=== PATIENT | female | born 1980 | race Caucasian/White ===

== ENCOUNTER → 2021-12-11 11:32 | Outpatient (CLI) | payer OTHER, SELFPAY ==
--- NOTE | 2021-12-11 | DI.MRI.S_ITS ---
PROCEDURE: MR PELVIS WO/W CON INDICATIONS: Fibroid TECHNIQUE: Coronal HASTE, sagittal breath-hold T2 FSE; axial T1 FSE with and without fat saturation through the pelvis. Optional long- and short-axis uterine nonbreath-hold T2 FSE through the uterus. Sagittal or axial dynamic VIBE during administration of contrast. Post-contrast axial or coronal VIBE/2-D FLASH with fat saturation from the iliac crests to the symphysis. Restricted diffusion weighted imaging and ADC was performed. COMPARISON: None. FINDINGS: Image quality: Excellent. Uterus: Uterus is enlarged measuring 15.2 x 10.7 x 10.5 cm. Large fundal intramural fibroid measuring 10.5 x 9.3 x 7.9 cm, (3/14). Small posterior intramural fibroid measuring 2.3 x 1.8 x 1.8 cm. No suspicious enhancement or restricted diffusion demonstrated. Junctional zone is normal in thickness at 12 mm or less. Endometrium is normal in thickness measuring 0.4 cm. Small nabothian cysts. Adnexa: Both ovaries are normal in size, without suspicious cystic or solid lesions. Small ovarian follicles. Urinary system: Bladder is decompressed. Distal ureters are non distended. Urethra appears normal in morphology. Nodes and vessels: No pelvic or inguinal adenopathy by size criteria. Iliac vessels are normal in size. Bowel and peritoneum: No pathologic free pelvic fluid. Inferior colon and small bowel loops are normal in caliber. Soft tissues: No inguinal hernias. No findings of pelvic floor incompetence in the absence of provocation. Bones: Marrow demonstrates normal overall signal. IMPRESSION: Enlarged fibroid uterus. Large fundal intramural fibroid measuring 10.5 cm. No suspicious imaging features identified. Dictated by: Humberto Raza M.D. on 12/11/2021 at 13:59 Approved by: Humberto Raza M.D. on 12/11/2021 at 14:09
== END ==
PROVIDERS: Referring Provider Obstetrics & Gynecology; Visit Provider Obstetrics & Gynecology
DX: D25.1 Intramural leiomyoma of uterus (principal)
CPT/HCPCS: 72197; A9579

== ENCOUNTER → 2022-02-18 13:08 | Outpatient (CLI) | payer OTHER, SELFPAY ==
[2022-02-18 18:39] LABS: Add Manual Diff / Slide Review NO; Basophils Absolute Auto 100 /uL (0-100); Basophils Percent Auto 0.8 % (0-2); Eosinophils Absolute Auto 100 /uL (0-450); Hematocrit 38.6 % (36-46); Hemoglobin 13.3 g/dL (12.0-16.0); Lymphocytes Absolute Auto 2400 /uL (1100-4500); Lymphocytes Percent Auto 33.9 % (25-40); Mean Corpuscular HGB Conc 34.5 % (30-36); Mean Corpuscular Volume 89.7 fL (80-100); Monocytes Absolute Auto 500 /uL (0-900); Monocytes Percent Auto 6.7 % (3-14); Neutrophils Absolute Auto 4000 /uL (1500-7000); Neutrophils Percent Auto 56.6 % (50-75); Platelet Count 386 X10^3/uL (150-400); Red Blood Cell Count 4.31 X10^6/uL (4.0-5.2); Red Cell Distribution Width 12.9 % (11.6-14.8)
[2022-02-18 18:59] LABS: Vitamin D 25 Hydroxy (D3) 47.3 ng/mL (30.0-100.0)
[2022-02-18 19:01] LABS: Follicle Stimulating Hormone 4.88 mIU/mL
[2022-02-18 19:15] LABS: Thyroid Stimulating Hormone 1.05 uIU/mL (0.47-4.68)
[2022-02-18 19:22] LABS: Hemoglobin A1C% w Est Avg Glu 5.6 % (4.0-6.0)
[2022-02-22 19:43] LABS: Varicella IgG Antibody 1591 index (Immune >165)
[2022-02-22 19:43] LABS: Mumps Virus IgG Antibody 39.3 AU/mL (Immune >10.9); Rubeola Measles IgG 95.3 AU/mL (Immune >16.4)
[2022-02-27 11:24] LABS: Percent Free Testosterone 1.58 % (0.50-2.80); Testosterone Free 0.36 ng/dL (0.10-0.85); Testosterone Total 22.9 ng/dL (.)
== END ==
PROVIDERS: Obstetrics & Gynecology; Visit Provider Obstetrics & Gynecology Reproductive Endocrinology
DX: Z00.00 Encounter for general adult medical examination without abnormal findings (principal); E28.9 Ovarian dysfunction, unspecified; Z11.3 Encounter for screening for infections with a predominantly sexual mode of transmission; Z11.4 Encounter for screening for human immunodeficiency virus [HIV]; Z11.9 Encounter for screening for infectious and parasitic diseases, unspecified; Z13.29 Encounter for screening for other suspected endocrine disorder; Z13.9 Encounter for screening, unspecified
CPT/HCPCS: 82306; 82397; 83001; 83036; 84146; 84402; 84403; 84443; 85025; 86735; 86762; 86765; 86787; 86850; 86900; 86901

== ENCOUNTER → 2022-03-23 13:03 | Outpatient (CLI) | payer OTHER, SELFPAY ==
[2022-03-23 20:07] LABS: Add Manual Diff / Slide Review NO; Basophils Absolute Auto 100 /uL (0-100); Eosinophils Absolute Auto 200 /uL (0-450); Eosinophils Percent Auto 3.2 % (2-4); Hemoglobin 13.4 g/dL (12.0-16.0); Lymphocytes Absolute Auto 2100 /uL (1100-4500); Lymphocytes Percent Auto 37.6 % (25-40); Mean Corpuscular HGB Conc 34.3 % (30-36); Mean Corpuscular Hemoglobin 31.2 PG (26-34); Mean Corpuscular Volume 90.9 fL (80-100); Monocytes Absolute Auto 400 /uL (0-900); Monocytes Percent Auto 7.4 % (3-14); Neutrophils Absolute Auto 2800 /uL (1500-7000); Neutrophils Percent Auto 50.8 % (50-75); Platelet Count 372 X10^3/uL (150-400); Red Cell Distribution Width 12.6 % (11.6-14.8); White Blood Cell Count 5.5 X10^3/uL (4.5-11.0)
== END ==
PROVIDERS: Visit Provider Physician Assistant
DX: K62.5 Hemorrhage of anus and rectum (principal)
CPT/HCPCS: 85025

== ENCOUNTER → 2022-05-06 09:22 | Outpatient (CLI) | payer OTHER, SELFPAY ==
--- NOTE | 2022-05-06 09:39 | DI.US.S_ITS ---
PROCEDURE: US PELVIC COMPLETE INDICATIONS: OVARIAN DYSFUNCTION. MEASURE ALL FOLLICLES AND TYPE OF ENDO. Currently on menses. Prior myomectomy TECHNIQUE: Real-time scanning was performed of the pelvic organs, with image documentation. Additional endovaginal scanning was necessary due to incomplete visualization of the adnexal and endometrial structures by transabdominal scanning. COMPARISON: [facility], MR, MR PELVIS WO/W CON, 12/11/2021, 11:43. FINDINGS: Uterus: Uterus is retroverted and normal in size at 8.3 x 6.1 x 5.1 cm. The endometrium measures 5 mm combined thickness, appears homogeneous/uniform. Tiny hypoechoic potentially cystic structure at the fundal endometrium measures 0.4 x 0.3 x 0.4 cm. Right midline intramural fibroid measuring 2.2 x 2.5 x 2.4 cm. Small multicystic area within the myometrium anterior to the uterine cavity abutting the endometrium measures 0.8 x 0.5 x 0.5 cm, nonspecific, could be sequela of prior myomectomy. Ovaries: Right ovary: 3.0 x 3.4 x 1.5 cm, volume 8 cc Follicles -1.1 cm -0.9 cm -0.8 cm -0.9 cm -0.8 cm -Approximately 8 others smaller than 5 mm Left ovary: 3.2 x 2.5 x 2.1 cm, volume 9 cc Follicles -0.6 cm -0.8 cm -Approximately 10 others smaller than 5 mm Other: No pathologic free abdominal or pelvic fluid. IMPRESSION: 1. Endometrial thickness of 5 mm, endometrium appears uniform. 2. Ovarian follicles as above. 3. A 2.5 cm intramural uterine fibroid. 4. Sub cm multi cystic area within the myometrium anterior to the uterine cavity/endometrium is nonspecific, could represent sequela of prior myomectomy, adenomyosis is also possible. 5. A 4 mm hypoechoic potentially cystic structure is present at the fundal endometrium, could represent blood products in this patient undergoing menses but is non-specific. We strive to produce accurate, complete, and clear reports of imaging services. To assist us in improving patient care, this report was composed using standard report templates and voice recognition software. Therefore, it may contain abnormal punctuation, insertions and/or omissions. Occasional wrong-word or sound-alike substitutions may occur. Though we review the report and make efforts to correct it, we do recommend that the report be read carefully in proper context to recognize any text inaccuracies. Dictated by: Devan Brown M.D. on 05/06/2022 at 12:57 Approved by: Devan Brown M.D. on 05/06/2022 at 13:12
[2022-05-06 12:09] LABS: Add Manual Diff / Slide Review NO; Basophils Absolute Auto 100 /uL (0-100); Basophils Percent Auto 0.6 % (0-2); Eosinophils Absolute Auto 400 /uL (0-450); Eosinophils Percent Auto 4.6 % (2-4); Hematocrit 40.1 % (36-46); Hemoglobin 13.7 g/dL (12.0-16.0); Lymphocytes Absolute Auto 2500 /uL (1100-4500); Lymphocytes Percent Auto 28.8 % (25-40); Mean Corpuscular HGB Conc 34.3 % (30-36); Mean Corpuscular Hemoglobin 30.7 PG (26-34); Mean Corpuscular Volume 89.5 fL (80-100); Monocytes Absolute Auto 500 /uL (0-900); Monocytes Percent Auto 5.5 % (3-14); Neutrophils Absolute Auto 5300 /uL (1500-7000); Neutrophils Percent Auto 60.5 % (50-75); Platelet Count 346 X10^3/uL (150-400); Red Blood Cell Count 4.48 X10^6/uL (4.0-5.2); Red Cell Distribution Width 12.7 % (11.6-14.8); White Blood Cell Count 8.7 X10^3/uL (4.5-11.0)
[2022-05-06 12:13] LABS: Follicle Stimulating Hormone 9.79 mIU/mL; Progesterone, Total 0.74 ng/mL
[2022-05-06 12:14] LABS: HCG Quantitative /Beta subunit < 2.4 mIU/mL
[2022-05-06 12:29] LABS: Estradiol, Total 34.7 pg/mL
[2022-05-06 12:39] LABS: Erythrocyte Sedimentation Rate 7 MM/HR (0-20); Vitamin D 25 Hydroxy (D3) 48.2 ng/mL (30.0-100.0)
[2022-05-06 12:56] LABS: HEMOLYSIS < 15 (0-50); Iron 49 ug/dL (37-170)
[2022-05-06 13:09] LABS: Percent Iron Saturation 12 % (15-50); Total Iron Binding Capacity 426 ug/dL (265-497); Transferrin 309 mg/dL (206-381)
[2022-05-06 13:16] LABS: Free T3, Triiodothyronine Free 3.73 pg/mL (2.77-5.27); Free T4, Direct Thyroxine 1.16 ng/dL (0.78-2.19)
[2022-05-06 14:37] LABS: Alanine Aminotransferase 24 IU/L (<35); Albumin 4.2 g/dL (3.5-5.0); Albumin Globulin Ratio 1.3 (1.0-2.8); Alkaline Phosphatase 48 U/L (38-126); Aspartate Aminotransferase 24 IU/L (14-36); Bilirubin Total 0.2 mg/dL (0.2-1.3); Blood Urea Nitrogen 13 mg/dL (7-17); C-Reactive Protein Quant < 0.5 mg/dL (<1.0); Calcium 9.1 mg/dL (8.4-10.2); Carbon Dioxide 21 mmol/L (22-32); Chloride 107 mmol/L (98-107); Cholesterol 190 mg/dL (140-199); Estimated Glomerular Filt Rate > 60 mL/min (>60); Gamma Glutamyl Transpeptidase 28 U/L (12-43); Globulin 3.3 g/dL (1.7-4.1); Glucose 97 mg/dL (70-100); HDL Cholesterol 26 mg/dL (40-60); HEMOLYSIS < 15 (0-50); LDL Cholesterol Calculated 109 mg/dL (<100); Sodium 139 mmol/L (137-145); Total Protein 7.5 g/dL (6.3-8.2); Triglycerides 275 mg/dL (35-150); Uric Acid 6.8 mg/dL (2.5-6.2)
[2022-05-06 14:39] LABS: High Sensitivity CRP - Cardiac 2.7 mg/L (1.0-3.0)
[2022-05-06 15:06] LABS: Cortisol AM (Before 10AM) 4.52 ug/dL (4.46-22.7)
[2022-05-06 15:11] LABS: Ferritin 17 ng/mL (6-137)
[2022-05-06 15:44] LABS: Hemoglobin A1C% w Est Avg Glu 5.4 % (4.0-6.0)
[2022-05-07 05:54] LABS: Thyroid Peroxidase Antibodies <8 IU/mL (0-34)
[2022-05-07 08:20] LABS: Homocysteine 8.4 umol/L (0.0-14.5)
[2022-05-07 18:27] LABS: Anti Thyroglobulin Antibody <1.0 IU/mL (0.0-0.9)
[2022-05-07 22:27] LABS: Zinc 74 ug/dL (44-115)
== END ==
PROVIDERS: Referring Provider Obstetrics & Gynecology Reproductive Endocrinology; Visit Provider Obstetrics & Gynecology Reproductive Endocrinology
DX: Z31.83 Encounter for assisted reproductive fertility procedure cycle (principal); D25.1 Intramural leiomyoma of uterus; E28.9 Ovarian dysfunction, unspecified; N91.5 Oligomenorrhea, unspecified; N39.9 Disorder of urinary system, unspecified; R39.15 Urgency of urination; Z73.3 Stress, not elsewhere classified; R63.5 Abnormal weight gain; N92.0 Excessive and frequent menstruation with regular cycle; K58.9 Irritable bowel syndrome, unspecified; R51.9 Headache, unspecified; R12 Heartburn; N94.3 Premenstrual tension syndrome; N97.9 Female infertility, unspecified; J30.2 Other seasonal allergic rhinitis
CPT/HCPCS: 36415; 76830; 76856; 80053; 80061; 82306; 82533; 82627; 82670; 82728; 82977; 83001; 83002; 83036; 83090; 83525; 83540; 83550; 84144; 84439; 84443; 84481; 84550; 84630; 84702; 85025; 85651; 86140; 86376; 86800

== ENCOUNTER → 2022-05-10 | Outpatient (CLI) | payer OTHER, SELFPAY ==
--- NOTE | 2022-05-10 | DI.US.S_ITS ---
PROCEDURE: US PELVIC COMPLETE INDICATIONS: FOLLICLE COUNT TECHNIQUE: Real-time scanning was performed of the pelvic organs, with image documentation. Additional endovaginal scanning was necessary due to incomplete visualization of the adnexal and endometrial structures by transabdominal scanning. COMPARISON: [facility], , US PELVIC COMPLETE, 05/06/2022, 9:48. FINDINGS: Uterus: Uterus is retroverted and normal in size at 8 x 4.7 x approximately 7.2 cm. The myometrium is heterogeneous, with several stable fibroids. The endometrium measures 6-7 mm combined thickness. The endometrial stripe is nearing a trilaminar appearance Ovaries: The right ovary measures 4.1 x 2.8 x 2.5 cm, with a calculated ovarian volume of 14.7 cc. The left ovary measures 3.5 x 2.5 x 2.7 cm, with a calculated ovarian volume of 12 cc. The ovaries have a normal sonographic appearance. No adnexal masses are seen. Follicle count: Right ovary: 8 follicles smaller than 5 mm, 3 follicles larger than 5 mm: 1.2 x 1.7 x 1.2 cm 2.1 x 1.5 x 1.3 cm 1.1 x 0.7 x 0.8 cm Left ovary: 5 follicles smaller than 5 mm, 4 follicles larger than 5 mm: 1.1 x 1.3 x 1.2 cm 1.2 x 1.2 x 1.3 cm 0.7 x 0.6 x 0.7 cm 0.6 x 0.5 x 0.6 Other: No pathologic free abdominal or pelvic fluid. IMPRESSION: Follicle count above. We strive to produce accurate, complete, and clear reports of imaging services. To assist us in improving patient care, this report was composed using standard report templates and voice recognition software. Therefore, it may contain abnormal punctuation, insertions and/or omissions. Occasional wrong-word or sound-alike substitutions may occur. Though we review the report and make efforts to correct it, we do recommend that the report be read carefully in proper context to recognize any text inaccuracies. Dictated by: Vicente Caldwell M.D. on 05/10/2022 at 10:56 Approved by: Vicente Caldwell M.D. on 05/10/2022 at 11:00
[2022-05-10 12:07] LABS: Luteinizing Hormone 1.62 mIU/mL; Progesterone, Total 0.89 ng/mL
[2022-05-10 12:22] LABS: Estradiol, Total 136.1 pg/mL
== END ==
PROVIDERS: PCP Physician Assistant; Referring Provider Obstetrics & Gynecology Reproductive Endocrinology; Visit Provider Obstetrics & Gynecology Reproductive Endocrinology
DX: Z31.83 Encounter for assisted reproductive fertility procedure cycle (principal); E28.9 Ovarian dysfunction, unspecified
CPT/HCPCS: 36415; 76830; 76856; 82670; 83002; 84144

== ENCOUNTER → 2022-05-12 09:17 | Outpatient (CLI) | payer OTHER, SELFPAY ==
--- NOTE | 2022-05-12 | DI.US.S_ITS ---
PROCEDURE: US TRANSVAGINAL INDICATIONS: FOLLICLE COUNT TECHNIQUE: Real-time scanning was performed of the pelvic organs, with image documentation. Additional endovaginal scanning was necessary due to incomplete visualization of the adnexal and endometrial structures by transabdominal scanning. COMPARISON: None. FINDINGS: Uterus: The uterus measures 8.6 x 4.8 x 8.4 centimeters. The endometrium measures 10 millimeters and has a trilaminar physiologic appearance. There are endometrial echogenic possible masses, measuring up to 1.5 x 0.5 centimeters and 1.7 x 1.5 centimeters. At least 1 might have a vascular stalk. Fibroid uterus. Ovaries: Right ovary measures 4.6 x 3.3 x 2.9 centimeters, for a volume of 23 cc. Left ovary measures 4.1 x 3.0 x 3.5 centimeters, for a volume of 22 cc. There are 6 follicles in right ovary over 5 millimeters, the largest two measuring 2.2 x 1.7 x 1.5 centimeters and 2.5 x 1.8 x 1.9 centimeters. There are 4 follicles under 5 millimeters. There 8 follicles in the left ovary over 5 millimeters, the largest two measuring 1.6 x 1.7 x 1.6 centimeters and 1.9 x 1.4 x 1.5 centimeters. There is 1 follicle under 5 millimeters. Other: No pathologic free abdominal or pelvic fluid. IMPRESSION: Follicle count as above. Trilaminar appearance of the endometrium. Endometrial echogenic region as described above could represent polyps, but may also represent heterogeneity in the secretory phase, as these were not definitely seen previously. Attention on follow-up imaging. Fibroid uterus. We strive to produce accurate, complete, and clear reports of imaging services. To assist us in improving patient care, this report was composed using standard report templates and voice recognition software. Therefore, it may contain abnormal punctuation, insertions and/or omissions. Occasional wrong-word or sound-alike substitutions may occur. Though we review the report and make efforts to correct it, we do recommend that the report be read carefully in proper context to recognize any text inaccuracies. Dictated by: Álvaro Lombardi M.D. on 05/12/2022 at 10:55 Approved by: Álvaro Lombardi M.D. on 05/12/2022 at 11:07
[2022-05-12 11:41] LABS: Luteinizing Hormone 1.47 mIU/mL; Progesterone, Total 0.94 ng/mL
[2022-05-12 11:56] LABS: Estradiol, Total 316.1 pg/mL
== END ==
PROVIDERS: PCP Physician Assistant; Referring Provider Obstetrics & Gynecology Reproductive Endocrinology; Visit Provider Obstetrics & Gynecology Reproductive Endocrinology
DX: Z31.83 Encounter for assisted reproductive fertility procedure cycle (principal); E28.9 Ovarian dysfunction, unspecified; D25.9 Leiomyoma of uterus, unspecified
CPT/HCPCS: 36415; 76830; 82670; 83002; 84144

== ENCOUNTER → 2022-05-28 07:18 | Outpatient (CLI) | payer OTHER, SELFPAY ==
--- NOTE | 2022-05-28 | DI.US.S_ITS ---
PROCEDURE: US TRANSVAGINAL INDICATIONS: Ovarian dysfunction, unspecified TECHNIQUE: Real-time scanning was performed of the pelvic organs, with image documentation. Additional endovaginal scanning was necessary due to incomplete visualization of the adnexal and endometrial structures by transabdominal scanning. COMPARISON: [facility], US, US TRANSVAGINAL, 05/12/2022, 9:34. FINDINGS: Uterus: Uterus is retroverted. The endometrium measures 4 mm combined thickness. Trace fluid is seen in the fundal endometrial canal. Previously seen uterine fibroids are not imaged. Right ovary: The right ovary measures 3.2 x 2.1 x 2.9 cm, with a calculated ovarian volume of 10 cc. A cyst with low-level internal echoes is seen measuring 1.1 x 1.2 by 1.0 cm, most likely a hemorrhagic cyst. Two follicles are seen measuring greater than 1.0 cm (2.6 cm and 1.1 cm in greatest dimension respectively). 3 follicles are seen measuring less than 1.0 cm. The left ovary measures 2.7 x 1.7 x 2.4 cm, with a calculated ovarian volume of 5.7 cc. The ovaries have a normal sonographic appearance. A probable hemorrhagic cyst is seen measuring 0.5 x 0.9 x 0.6 cm. No follicles are seen measuring greater than 1.0 cm. A total of 16 follicles are seen measuring less than 1.0 cm. Other: No pathologic free abdominal or pelvic fluid. IMPRESSION: 1. Follicle count as described in the body of the report. Small hemorrhagic cysts are seen bilaterally. 2. Endometrium measures 4 mm in thickness. Previously seen echogenic regions are not redemonstrated. We strive to produce accurate, complete, and clear reports of imaging services. To assist us in improving patient care, this report was composed using standard report templates and voice recognition software. Therefore, it may contain abnormal punctuation, insertions and/or omissions. Occasional wrong-word or sound-alike substitutions may occur. Though we review the report and make efforts to correct it, we do recommend that the report be read carefully in proper context to recognize any text inaccuracies. Dictated by: Devan Kang M.D. on 05/28/2022 at 9:27 Approved by: Devan Kang M.D. on 05/28/2022 at 10:07
[2022-05-28 09:01] LABS: Follicle Stimulating Hormone 4.59 mIU/mL; HCG Quantitative /Beta subunit < 2.4 mIU/mL; Luteinizing Hormone 1.34 mIU/mL; Progesterone, Total 1.06 ng/mL
[2022-05-28 09:16] LABS: Estradiol, Total 21.1 pg/mL
[2022-05-28 09:40] LABS: Thyroid Stimulating Hormone 2.21 uIU/mL (0.47-4.68)
== END ==
PROVIDERS: PCP Physician Assistant; Referring Provider Obstetrics & Gynecology Reproductive Endocrinology; Visit Provider Obstetrics & Gynecology Reproductive Endocrinology
DX: Z31.83 Encounter for assisted reproductive fertility procedure cycle (principal); E28.9 Ovarian dysfunction, unspecified; N83.202 Unspecified ovarian cyst, left side; N83.201 Unspecified ovarian cyst, right side
CPT/HCPCS: 36415; 76830; 82670; 83001; 83002; 84144; 84443; 84702

== ENCOUNTER → 2022-06-07 08:07 | Outpatient (CLI) | payer OTHER, SELFPAY ==
--- NOTE | 2022-06-07 | DI.US.S_ITS ---
PROCEDURE: US TRANSVAGINAL INDICATIONS: FOLLICLE COUNT/ENDO TYPE. NEW ESTROGEN/PROGESTRONE THERAPY. TECHNIQUE: Real-time endovaginal scanning was performed of the pelvic organs, with image documentation. COMPARISON: [facility], US TRANSVAGINAL, 05/28/2022, 7:41. FINDINGS: Uterus: Uterus is retroverted and normal in size at 7.3 x 6.6 x 5.1 cm. The myometrium is heterogeneous. A small uterine calcification is noted. The endometrium measures 3.7 mm combined thickness. There is a 3 mm cyst within the endometrium which is slightly decreased in size from 4 mm on the prior study. There is a right posterior intramural fibroid which measures 2.6 x 2.5 x 2.8 cm (previously measured 2.2 x 2.5 x 2.4 cm) and a right posterior intramural fibroid which measures 0.9 x 0.8 x 0.7 cm (previously measured 0.5 x 0.5 x 0.8 cm). Ovaries: The right ovary measures 4.1 x 1.7 x 2.1 cm, with a calculated ovarian volume of 7.6 cc. The left ovary measures 3.7 x 2.7 x 2.0 cm, with a calculated ovarian volume of 10.9 cc. The ovaries have a normal sonographic appearance. No adnexal masses are seen. Right ovary: There is a complex cyst within the right ovary which measures 1.4 x 1.5 x 1.8 cm. There are greater than 15 subcentimeter right ovarian follicles. The largest follicle measures 7 mm in diameter. Left ovary: There are greater than 11 subcentimeter follicles. The largest left ovarian follicle measures 1.0 cm in diameter. Other: No pathologic free abdominal or pelvic fluid. IMPRESSION: 1. Fibroid uterus. 2. Sonographic findings suggesting right hemorrhagic cyst. 3. Ovarian follicles as above. We strive to produce accurate, complete, and clear reports of imaging services. To assist us in improving patient care, this report was composed using standard report templates and voice recognition software. Therefore, it may contain abnormal punctuation, insertions and/or omissions. Occasional wrong-word or sound-alike substitutions may occur. Though we review the report and make efforts to correct it, we do recommend that the report be read carefully in proper context to recognize any text inaccuracies. Dictated by: Crissy Bravo M.D. on 06/07/2022 at 9:44 Approved by: Crissy Bravo M.D. on 06/07/2022 at 9:48
[2022-06-07 09:57] LABS: HCG Quantitative /Beta subunit < 2.4 mIU/mL
[2022-06-07 09:59] LABS: Follicle Stimulating Hormone 6.03 mIU/mL; Luteinizing Hormone 2.46 mIU/mL; Progesterone, Total 9.11 ng/mL
[2022-06-07 10:13] LABS: Thyroid Stimulating Hormone 1.66 uIU/mL (0.47-4.68)
[2022-06-07 10:14] LABS: Estradiol, Total 151.6 pg/mL
== END ==
PROVIDERS: PCP Physician Assistant; Referring Provider Obstetrics & Gynecology Reproductive Endocrinology; Visit Provider Obstetrics & Gynecology Reproductive Endocrinology
DX: Z31.83 Encounter for assisted reproductive fertility procedure cycle (principal); E28.9 Ovarian dysfunction, unspecified; D25.1 Intramural leiomyoma of uterus; N83.291 Other ovarian cyst, right side
CPT/HCPCS: 36415; 76830; 82670; 83001; 83002; 84144; 84443; 84702

== ENCOUNTER → 2022-06-09 09:37 | Outpatient (CLI) | payer OTHER, SELFPAY ==
--- NOTE | 2022-06-09 | DI.US.S_ITS ---
PROCEDURE: US TRANSVAGINAL INDICATIONS: Ovarian dysfunction, unspecified TECHNIQUE: Real-time scanning was performed of the pelvic organs, with image documentation. Additional endovaginal scanning was necessary due to incomplete visualization of the adnexal and endometrial structures by transabdominal scanning. COMPARISON: [facility], US, US TRANSVAGINAL, 06/07/2022, 8:25. FINDINGS: Uterus: Uterus is retroverted and normal in size at 7.8 x 5 x 7.3 cm. The myometrium is slightly heterogeneous. Multiple uterine fibroids are again seen unchanged from 06/07/2022 study. The endometrium measures 6.7 mm combined thickness. No gross endometrial mass or fluid is seen. Ovaries: The right ovary measures 3.4 x 2.5 x 2.1 cm, with a calculated ovarian volume of 9.5 cc. The left ovary measures 3.7 x 2.1 x 2.7 cm, with a calculated ovarian volume of 10.9 cc. The ovaries have a normal sonographic appearance. No adnexal masses are seen. Approximately 13 follicles are noted in right ovary on the current study with suggestion of a septated follicle versus 2 adjacent follicles measures 1.2 x 0.6 x 0.7 cm in size. Previously described possible complex cyst in right ovary is again seen now measures 1.4 x 0.9 x 1.1 cm in size compared to 1.4 x 1.5 x 1.8 cm in size on previous study. Approximately 11 follicles are noted in left ovary with a single 1 x 1 x 0.7 cm left ovarian follicle. Other: No pathologic free abdominal or pelvic fluid. IMPRESSION: 1. Multiple uterine fibroids unchanged from previous study. 2. Suggestion of right complex cyst/hemorrhagic cyst not significantly changed from previous study. 3. Bilateral ovarian follicles as described above. We strive to produce accurate, complete, and clear reports of imaging services. To assist us in improving patient care, this report was composed using standard report templates and voice recognition software. Therefore, it may contain abnormal punctuation, insertions and/or omissions. Occasional wrong-word or sound-alike substitutions may occur. Though we review the report and make efforts to correct it, we do recommend that the report be read carefully in proper context to recognize any text inaccuracies. Dictated by: Zach Burch M.D. on 06/09/2022 at 14:43 Approved by: Zach Burch M.D. on 06/09/2022 at 14:47
[2022-06-09 12:42] LABS: HCG Quantitative /Beta subunit < 2.4 mIU/mL
[2022-06-09 12:43] LABS: Follicle Stimulating Hormone 7.26 mIU/mL; Luteinizing Hormone 3.43 mIU/mL; Progesterone, Total 1.06 ng/mL
[2022-06-09 12:58] LABS: Estradiol, Total 54.8 pg/mL
== END ==
LOC: US 09:47
PROVIDERS: PCP Physician Assistant; Referring Provider Obstetrics & Gynecology Reproductive Endocrinology; Visit Provider Obstetrics & Gynecology Reproductive Endocrinology
DX: Z31.83 Encounter for assisted reproductive fertility procedure cycle (principal); E28.9 Ovarian dysfunction, unspecified; D25.9 Leiomyoma of uterus, unspecified; N83.201 Unspecified ovarian cyst, right side
CPT/HCPCS: 36415; 76830; 82670; 83001; 83002; 84144; 84443; 84702

== ENCOUNTER → 2022-06-14 15:35 | Outpatient (CLI) | payer OTHER, SELFPAY ==
--- NOTE | 2022-06-14 15:48 | DI.US.S_ITS ---
PROCEDURE: US TRANSVAGINAL INDICATIONS: FOLLICLE COUNT AND ENDOMETRIAL TYPE TECHNIQUE: Real-time scanning was performed of the pelvic organs, with image documentation. Additional endovaginal scanning was necessary due to incomplete visualization of the adnexal and endometrial structures by transabdominal scanning. COMPARISON: [facility], , US TRANSVAGINAL, 06/09/2022, 10:04. FINDINGS: Uterus: Uterus is retroverted and normal in size at 10.6 by 6.2 x 5.3 cm. The myometrium is slightly heterogenous. The endometrium is trilaminar measures 4.6 mm combined thickness. Ovaries: The right ovary measures 4.4 x 1.9 x 2.5 cm, with a calculated ovarian volume of 11.1 cc. The left ovary measures 3.6 x 2.9 x 3.5 cm, with a calculated ovarian volume of 19.0 cc. The ovaries have a normal sonographic appearance. No adnexal masses are seen. On the right, there are greater than 12 follicles present. There are 4 follicles greater than 1 cm measuring 1.5, 1.2, 1.2 and 1.2 cm respectively. On the left, there are greater than 8 total follicles. There are 3 follicles greater than 1 cm measuring 1.4, 1.4, 1.3 cm Other: No pathologic free abdominal or pelvic fluid. IMPRESSION: Follicle count as above Approved by: Grupo Carvalho M.D. on 06/14/2022 at 17:40
[2022-06-14 19:15] LABS: Luteinizing Hormone 1.24 mIU/mL; Progesterone, Total 0.57 ng/mL
[2022-06-14 19:31] LABS: Estradiol, Total 162.4 pg/mL
== END ==
PROVIDERS: PCP Physician Assistant; Referring Provider Obstetrics & Gynecology Reproductive Endocrinology; Visit Provider Obstetrics & Gynecology Reproductive Endocrinology
DX: Z31.83 Encounter for assisted reproductive fertility procedure cycle (principal); E28.9 Ovarian dysfunction, unspecified
CPT/HCPCS: 36415; 76830; 82670; 83002; 84144

== ENCOUNTER → 2022-06-16 13:47 | Outpatient (CLI) | payer OTHER, SELFPAY ==
--- NOTE | 2022-06-16 13:59 | DI.US.S_ITS ---
PROCEDURE: US TRANSVAGINAL INDICATIONS: FOLLICLE TRACKING TECHNIQUE: Real-time scanning was performed of the pelvic organs, with image documentation. Additional endovaginal scanning was necessary due to incomplete visualization of the adnexal and endometrial structures by transabdominal scanning. COMPARISON: [facility], , US TRANSVAGINAL, 06/14/2022, 16:27. FINDINGS: Uterus: Uterus is retroverted and normal in size at 8.9 x 5.4 x 8.5 cm.. The endometrium measures 9 mm combined thickness. Endometrial complex is trilaminar. There is a 3 mm focus of decreased echogenicity a along the endometrial canal. Ovaries: The right ovary measures 4.3 x 3.2 x 2.9 cm, with a calculated ovarian volume of 21.1 cc. The left ovary measures 3.7 x 2.5 x 4.0 cm, with a calculated ovarian volume of 19 cc. The ovaries have a normal sonographic appearance. Greater than 12 follicles can be seen in each ovary. No adnexal masses are seen. Other: No pathologic free abdominal or pelvic fluid. IMPRESSION: Greater than 12 follicles within the ovaries bilaterally. There is a focus of decreased echogenicity within the endometrium measuring approximately 3 mm. It is too small to definitively characterize and is new compared to prior exam. This could represent a small focus of intrauterine gestational sac. However, it is too small to definitively characterize and short interval imaging follow-up is recommended. We strive to produce accurate, complete, and clear reports of imaging services. To assist us in improving patient care, this report was composed using standard report templates and voice recognition software. Therefore, it may contain abnormal punctuation, insertions and/or omissions. Occasional wrong-word or sound-alike substitutions may occur. Though we review the report and make efforts to correct it, we do recommend that the report be read carefully in proper context to recognize any text inaccuracies. Dictated by: Babs Estrada M.D. on 06/16/2022 at 15:23 Approved by: Babs Estrada M.D. on 06/16/2022 at 15:26
[2022-06-16 16:15] LABS: Luteinizing Hormone 15.8 mIU/mL; Progesterone, Total 0.87 ng/mL
[2022-06-16 16:30] LABS: Estradiol, Total 350.8 pg/mL
== END ==
PROVIDERS: PCP Physician Assistant; Referring Provider Obstetrics & Gynecology Reproductive Endocrinology; Visit Provider Obstetrics & Gynecology Reproductive Endocrinology
DX: Z31.83 Encounter for assisted reproductive fertility procedure cycle (principal); E28.9 Ovarian dysfunction, unspecified
CPT/HCPCS: 36415; 76830; 82670; 83002; 84144

== ENCOUNTER → 2022-06-18 07:24 | Outpatient (CLI) | payer OTHER, SELFPAY ==
--- NOTE | 2022-06-18 | DI.US.S_ITS ---
PROCEDURE: US TRANSVAGINAL INDICATIONS: FOLLICLE TRACKING TECHNIQUE: Real-time scanning was performed of the pelvic organs, with image documentation. Additional endovaginal scanning was necessary due to incomplete visualization of the adnexal and endometrial structures by transabdominal scanning. COMPARISON: [facility], US, US TRANSVAGINAL, 06/09/2022, 10:04. [facility], US, US TRANSVAGINAL, 06/16/2022, 14:07. FINDINGS: Uterus: Uterus is retroverted and normal in size at 8.5 x 5.4 x 7.6 cm. The myometrium is homogeneous. The endometrium measures 8.7 mm combined thickness. There is a persistent focus of decreased echogenicity within the endometrium measuring 0.3 x 1.6 x 2.3 mm. Is relatively unchanged compared to prior exam. Ovaries: The right ovary measures 2.8 x 4.2 x 3.7 cm, with a calculated ovarian volume of 22.4 cc. The left ovary measures 4.6 x 2.9 x 4.7 cm, with a calculated ovarian volume of 31.6 cc. The ovaries have a normal sonographic appearance. No adnexal masses are seen. Right ovarian follicles greater than 1 cm: 1.9 x 1.7 x 1.7 cm 2.1 x 1.6 x 1.1 cm 1.6 x 1.5 x 1.6 cm 1.4 x 1.0 x 1.7 cm Complex focus of echogenicity is present measuring 1.1 x 0.9 x 0.8 cm. There less than 12 follicles measuring less than 1 cm. Left ovarian follicles greater than 1 cm: 1.9 x 1.4 x 2.1 cm 1.5 x 1.2 x 1.2 cm 2.1 x 1.8 x 1.9 cm 2.1 x 1.5 x 1.9 cm There are less than 11 follicles less than 1 cm in size. Other: No pathologic free abdominal or pelvic fluid. IMPRESSION: Persistent focus of decreased echogenicity within the endometrium without change compared to 06/16/2022. As previously noted, this is indeterminate in appearance and a small intrauterine gestational sac cannot be definitively excluded. However, recommend correlation to beta HCG levels. Follicles are as noted above. We strive to produce accurate, complete, and clear reports of imaging services. To assist us in improving patient care, this report was composed using standard report templates and voice recognition software. Therefore, it may contain abnormal punctuation, insertions and/or omissions. Occasional wrong-word or sound-alike substitutions may occur. Though we review the report and make efforts to correct it, we do recommend that the report be read carefully in proper context to recognize any text inaccuracies. Dictated by: Babs Estrada M.D. on 06/18/2022 at 11:16 Approved by: Babs Estrada M.D. on 06/18/2022 at 11:21
[2022-06-18 08:41] LABS: Progesterone, Total 1.53 ng/mL
[2022-06-18 08:56] LABS: Estradiol, Total 442.9 pg/mL
== END ==
PROVIDERS: PCP Physician Assistant; Referring Provider Obstetrics & Gynecology Reproductive Endocrinology; Visit Provider Obstetrics & Gynecology Reproductive Endocrinology
DX: Z31.83 Encounter for assisted reproductive fertility procedure cycle (principal); E28.9 Ovarian dysfunction, unspecified
CPT/HCPCS: 36415; 76830; 82670; 83002; 84144

== ENCOUNTER → 2022-07-14 10:54 | Outpatient (CLI) | payer OTHER, SELFPAY ==
--- NOTE | 2022-07-14 | DI.US.S_ITS ---
PROCEDURE: US FOLLICLE TRANSVAGINAL COMPARISON: None. INDICATIONS: FOLLICLE TRACKING FINDINGS: Uterus is retroverted and measures 7.8 x 4.8 x 7.3 cm in size and is homogeneous in echotexture. No discrete uterine fibroid is seen. Endometrium measures 3.2 mm in thickness and show normal trilaminar appearance. No endometrial mass or fluid. Right ovary measures 2.4 x 3.4 x 3.1 cm in size with a volume of 13.6 cc. 1 x 0.8 x 0.8 cm follicle is seen in right ovary. Additional 11 sub cm follicles are noted. 4 complex cysts are seen in right ovary measures 1.3 x 1.7 x 1.7 cm, a 2 x 1.4 x 1.2 cm, 1.1 x 0.8 x 1 cm, and 1.1 x 0.9 x 1.1 cm in size. Left ovary measures 4.2 x 2.1 x 3.8 cm in size with a volume of 17.6 cc. 2 greater than 1 cm follicles are noted in left ovary measures 0.7 x 0.6 x 1.1 cm and 1 x 0.4 x 1.4 cm in size. 6 additional sub cm follicles are also seen in left ovary. 2 complex cysts are noted in left ovary measures 1.7 x 1.2 x 1.7 cm and 1.5 x 1.0 x 1.1 cm in size. There is no pelvic free fluid. IMPRESSION: 1. Single greater than 1 cm follicle in right ovary and 2 greater than 1 cm follicles in left ovary as above. Dictated by: Zach Burch M.D. on 07/14/2022 at 14:36 Approved by: Zach Burch M.D. on 07/14/2022 at 14:39
[2022-07-14 12:22] LABS: Follicle Stimulating Hormone 6.89 mIU/mL; HCG Quantitative /Beta subunit < 2.4 mIU/mL
[2022-07-14 12:38] LABS: Estradiol, Total 164.4 pg/mL
== END ==
PROVIDERS: PCP Physician Assistant; Referring Provider Obstetrics & Gynecology Reproductive Endocrinology; Visit Provider Obstetrics & Gynecology Reproductive Endocrinology
DX: Z31.83 Encounter for assisted reproductive fertility procedure cycle (principal); E28.9 Ovarian dysfunction, unspecified; N83.292 Other ovarian cyst, left side; N83.291 Other ovarian cyst, right side
CPT/HCPCS: 36415; 76830; 82670; 83001; 83002; 84144; 84443; 84702

== ENCOUNTER → 2022-07-19 08:41 | Outpatient (CLI) | payer OTHER, SELFPAY ==
--- NOTE | 2022-07-19 | DI.US.S_ITS ---
PROCEDURE: US FOLLICLE TRANSVAGINAL COMPARISON: [facility], , US FOLLICLE TRANSVAGINAL, 07/14/2022, 11:02. INDICATIONS: Ovarian dysfunction, unspecified FINDINGS: Uterus is retroverted and measures 7.8 x 7.9 x 4.8 cm in size. Heterogeneous myometrial echotexture is seen. 2 intramural fibroids are again noted in posterior right myometrium measures 0.8 x 0.6 x 0.7 cm and 2.5 x 2.6 x 2.3 cm in size not significantly changed from previous study. Endometrium measures 3.2 cm in size and show normal trilaminar appearance. No endometrial mass or fluid. Right ovary measures 4.3 x 2.4 x 2.5 cm in size with a volume of 13.1 cc. Left ovary measures 4.5 x 2.0 x 2.4 cm in size with a volume of 4.6 cc. No solid appearing ovarian lesions. 2 follicles greater than 1 cm are seen in right ovary measures 1.2 x 1.2 x 0.9 cm and 1.2 x 0.8 x 0.9 cm in size. 10 less than 1 cm follicles are also noted in right ovary. Possible complex cysts are noted in right ovary measures 1.3 x 1.1 x 1.3 cm, 0.8 x 0.7 x 0.7 cm, 1.3 x 1.1 x 1.1 cm and 0.8 x 0.7 x 0.7 cm in size. 2 greater than 1 cm follicles are noted in left ovary measures 1.2 x 1 x 1.1 cm and 1.2 x 1.2 x 0.9 cm in size. 12 less than 1 cm follicles are seen in left ovary. Single complex cyst is noted in left ovary measures 1.5 x 1 x 0.8 cm in size. IMPRESSION: 2 follicles greater than 1 cm are noted in each ovary as described above. Dictated by: Zach Burch M.D. on 07/19/2022 at 9:46 Approved by: Zach Burch M.D. on 07/19/2022 at 9:54
[2022-07-19 10:32] LABS: Luteinizing Hormone 1.16 mIU/mL; Progesterone, Total 0.99 ng/mL
[2022-07-19 10:48] LABS: Estradiol, Total 120.2 pg/mL
== END ==
PROVIDERS: PCP Physician Assistant; Referring Provider Obstetrics & Gynecology Reproductive Endocrinology; Visit Provider Obstetrics & Gynecology Reproductive Endocrinology
DX: Z31.83 Encounter for assisted reproductive fertility procedure cycle (principal); E28.9 Ovarian dysfunction, unspecified
CPT/HCPCS: 36415; 76830; 82670; 83002; 84144

== ENCOUNTER → 2022-07-21 10:50 | Outpatient (CLI) | payer OTHER, SELFPAY ==
--- NOTE | 2022-07-21 | DI.US.S_ITS ---
PROCEDURE: US FOLLICLE TRANSVAGINAL COMPARISON: , , US FOLLICLE TRANSVAGINAL, 07/19/2022, 9:02. INDICATIONS: OVARIAN DYSFUNCTION. FOLLICLE COUNT AND ENDO TYPE. FINDINGS: Uterus is retroverted and measures 8.0 x 7.6 x 5.6 cm in size. Heterogeneous myometrial echotexture is seen. Previously described 2 intramural fibroids in posterior right myometrium are grossly unchanged in size and appearance from prior studies. Endometrium measures 6.9 mm in thickness and show normal trilaminar appearance. Multiple anechoic cysts are seen within endometrium measures up to 1.3 x 1.7 x 1 mm in size. No solid appearing endometrial lesion or fluid. Right ovary measures 4.5 x 2.2 x 2.1 cm in size with a volume of 10.5 cc. Left ovary measures 4.7 x 3.6 x 2.7 cm in size with a volume of 24 cc. 3 greater than 1 cm follicles are seen in right ovary and measures 1 x 1 x 1.1 cm, 1.3 x 1.3 x 1.2 cm and 1.6 x 1.2 x 1.2 cm in size. 2 less than 1 cm follicles are noted in right ovary. Probable complex cysts are noted in right ovary measures 1.3 x 1 x 1 cm and 0.8 x 0.6 x 1 cm in size. 8 greater than 1 cm follicles are noted in left ovary and measures 1.4 x 1.5 x 1.6 cm, 1.3 x 1 x 0.9 cm, 1.6 x 1.8 x 1.2 cm, 1.0 x 0.7 x 0.8 cm, 1 x 0.8 x 0.7 cm, 1.6 x 1.6 x 1.5 cm, 1.3 x 1 x 1.1 cm and 1 x 0.6 x 0.9 cm in size. 2 probable complex cysts are noted in left ovary measures 1.4 x 1.5 x 1.1 and 1.4 x 1.2 x 0.9 cm in size. 4 less than 1 cm follicles are seen in left ovary. IMPRESSION: 1. 8 greater than 1 cm follicles are noted in left ovary. 3 greater than 1 cm follicles are seen in right ovary as described in detail above. Dictated by: Zach Burch M.D. on 07/21/2022 at 12:59 Approved by: Zach Burch M.D. on 07/21/2022 at 13:04
[2022-07-21 12:16] LABS: Luteinizing Hormone 0.835 mIU/mL; Progesterone, Total 0.84 ng/mL
[2022-07-21 12:31] LABS: Estradiol, Total 236.7 pg/mL
== END ==
PROVIDERS: PCP Physician Assistant; Referring Provider Obstetrics & Gynecology Reproductive Endocrinology; Visit Provider Obstetrics & Gynecology Reproductive Endocrinology
DX: Z31.83 Encounter for assisted reproductive fertility procedure cycle (principal); E28.9 Ovarian dysfunction, unspecified
CPT/HCPCS: 36415; 76830; 82670; 83002; 84144

== ENCOUNTER → 2022-07-23 09:46 | Outpatient (CLI) | payer OTHER, SELFPAY ==
--- NOTE | 2022-07-23 | DI.US.S_ITS ---
PROCEDURE: US FOLLICLE TRANSVAGINAL COMPARISON: [facility], , US FOLLICLE TRANSVAGINAL, 07/21/2022, 11:07. INDICATIONS: OVARIAN DYSFUNCTION FINDINGS: Retroverted uterus measures 9.0 x 7.6 x 5.1 cm. Endometrial thickness measures 9 mm. Heterogeneous uterine echotexture. No interval change in appearance of previously reported endometrial cyst and fibroids. Right ovary: Right ovary measures 5.1 x 2.7 x 2.5 cm with volume of 18 mL. There are 4 follicles larger than 1 cm in size. #1. 1.5 x 1.3 x 1.1 cm #2. 1.8 x 1.5 x 1.5 cm #3. 0.9 x 1.1 x 0.6 cm #4. 2.2 x 1.5 x 1.4 cm Follicles less than 1 cm in size: 4 There are 2 probably complex cyst in the right ovary measuring 1.1 x 1.1 x 1.5 cm and 1.0 x 1.2 x 1.1 cm. These are not significantly changed. Left ovary: Left ovary measures 6.2 x 3.7 x 3.0 cm with ovarian volume of 37 mL. There are 10 follicles in the left ovary measuring greater than 1 cm in size. #1. 1.1 x 1.2 x 0.8 cm #2. 0.9 x 1.1 x 1.1 cm #3. 1.9 x 1.8 x 1.3 cm #4. 1.7 x 1.3 x 1.4 cm #5. 1.8 x 1.7 x 1.5 cm #6. 1.2 x 1.0 x 0.7 cm #7. 0.8 x 1.2 x 0.9 cm #8. 0.9 x 1.1 x 0.8 cm #9. 1.7 x 1.4 x 1.3 cm #10. 1.2 x 1.2 x 0.8 cm Follicles less than 1 cm in size: 2 Previously seen complex cyst are no longer visualized on today's evaluation. IMPRESSION: 1. There are 4 follicles greater than 1 cm in the right ovary and 10 follicles greater than 1 cm in the left ovary. Size details as above. 2. There are 2 probably complex right ovarian cyst. Previously seen complex left ovarian cysts are no longer visualized. Dictated by: Elpidio Hopper M.D. on 07/23/2022 at 11:07 Approved by: Elpidio Hopper M.D. on 07/23/2022 at 11:16
[2022-07-23 11:55] LABS: Luteinizing Hormone 2.28 mIU/mL; Progesterone, Total 0.97 ng/mL
[2022-07-23 12:11] LABS: Estradiol, Total 566.2 pg/mL
== END ==
PROVIDERS: PCP Physician Assistant; Referring Provider Obstetrics & Gynecology Reproductive Endocrinology; Visit Provider Obstetrics & Gynecology Reproductive Endocrinology
DX: Z31.83 Encounter for assisted reproductive fertility procedure cycle (principal); E28.9 Ovarian dysfunction, unspecified
CPT/HCPCS: 36415; 76830; 82670; 83002; 84144